=== PATIENT | female | born 1985 | race Caucasian/White ===

== ENCOUNTER 2020-11-30 12:17 | Emergency (ER) | payer BC ==
[~2020-11-30] VITALS: Ht 175.3 cm; Wt 111.1 kg
[2020-11-30] MEDS ORDERED: PERCOCET PO (13:00)
[2020-11-30 13:14] VITALS: BP 141/70
== END 2020-11-30 13:16 | disposition home or self-care (01) ==
LOC: M.ERS 12:17
DX: S82.841A Displaced bimalleolar fracture of right lower leg, initial encounter for closed fracture (principal); V19.3XXA Pedal cyclist (driver) (passenger) injured in unspecified nontraffic accident, initial encounter; Y93.I9 Activity, other involving external motion; Y92.89 Other specified places as the place of occurrence of the external cause; Y99.8 Other external cause status